=== PATIENT | female | born 1945 | race Caucasian/White ===

== ENCOUNTER 2021-07-03 14:03 | Emergency (ER) | payer MEDICARE, OTHER ==
[2021-07-03] MEDS ORDERED: HYDROCODON-ACE1 EAC4 PO (16:44)
[2021-07-11] MEDS ORDERED: EDARBI80 MG PO (15:11)
[2021-07-11] MEDS ORDERED: PROPRANOLOL HCL60 MG PO (15:13)
[2021-07-11] MEDS ORDERED: CLONIDINE HCL0.1 MG PO (15:14)
[2021-07-11] MEDS ORDERED: METFORMIN HCL500 M2 PO (15:15)
[2021-07-11] MEDS ORDERED: FLUTICASONE PROPIONA (15:19)
[2021-07-11] MEDS ORDERED: SINGULAIR10 MG PO (15:20)
[2021-07-11] MEDS ORDERED: HYDROCHLOROTHIA25 MG PO (15:21)
[2021-07-11] MEDS ORDERED: SYNTHROID125 MCG PO (15:21)
[2021-07-11] MEDS ORDERED: ZOCOR40 MG PO (15:22)
[2021-07-11] MEDS ORDERED: ZANAFLEX 4 MG TA4 MG PO (15:22)
[2021-07-11] MEDS ORDERED: LOW DOSE ASPIRI81 MG PO (15:23)
[2021-07-11] MEDS ORDERED: PHENERGAN 25 MG25 M1 PO (15:24)
[2021-07-11] MEDS ORDERED: VIT B6 PO (15:25)
[2021-07-11] MEDS ORDERED: NITROSTAT 0.40.4 MG SL (15:25)
[2021-07-11] MEDS ORDERED: FISH OIL 1,0001 EACH PO (15:26)
[2021-07-11] MEDS ORDERED: VITAMIN B12 PO (15:27)
[2021-07-11] MEDS ORDERED: VIT C PO (15:27)
[2021-07-11] MEDS ORDERED: VIT D PO (15:28)
[2021-07-13] MEDS ORDERED: ENDOCET 7.5-321 EACH PO (09:12)
== END 2021-07-03 17:17 | disposition home or self-care (01) ==
LOC: ER1 14:03
DX: S42.252A Displaced fracture of greater tuberosity of left humerus, initial encounter for closed fracture (principal); S90.32XA Contusion of left foot, initial encounter; I10 Essential (primary) hypertension; F17.210 Nicotine dependence, cigarettes, uncomplicated; Z88.5 Allergy status to narcotic agent; Z85.3 Personal history of malignant neoplasm of breast; W19.XXXA Unspecified fall, initial encounter
CPT/HCPCS: 71045; 73030; 73200; 99284

== ENCOUNTER → 2021-07-11 | Day surgery (SDC) | payer MEDICARE, OTHER ==
[~2021-07-11] MED LIST: CLONIDINE HCL0.1 MG PO; EDARBI80 MG PO; ENDOCET 7.5-321 EACH PO; FISH OIL 1,0001 EACH PO; FLUTICASONE PROPIONA; HYDROCHLOROTHIA25 MG PO; HYDROCODON-ACE1 EAC4 PO; LOW DOSE ASPIRI81 MG PO; METFORMIN HCL500 M2 PO; NITROSTAT 0.40.4 MG SL; PHENERGAN 25 MG25 M1 PO; PROPRANOLOL HCL60 MG PO; SINGULAIR10 MG PO; SYNTHROID125 MCG PO; VIT B6 PO; VIT C PO; VIT D PO; VITAMIN B12 PO; ZANAFLEX 4 MG TA4 MG PO; ZOCOR40 MG PO
[2021-07-11 14:05] LABS: HEMOGLOBIN 13.6 gm/dl (12.3-15.3); RED BLOOD COUNT 4.28 M/UL (4.00-5.10); WHITE BLOOD COUNT 9.4 K/UL (4.5-11.0)
[2021-07-11 14:20] LABS: BUN/CREATININE RATIO 19 (0-10)
== END | disposition home or self-care (01) ==
LOC: OPSV2 13:00
PROVIDERS: Orthopaedic Surgery
DX: Z01.818 Encounter for other preprocedural examination (principal); S42.302A Unspecified fracture of shaft of humerus, left arm, initial encounter for closed fracture
CPT/HCPCS: 71046; 80048; 83036; 85025; 87081; 93005

== ENCOUNTER → 2021-07-13 | Day surgery (SDC) | payer MEDICARE, OTHER ==
[~2021-07-13] VITALS: Ht 165.1 cm; Wt 75.7 kg
== END | disposition home or self-care (01) ==
LOC: OR 06:59
DX: S42.202A Unspecified fracture of upper end of left humerus, initial encounter for closed fracture (principal); I11.9 Hypertensive heart disease without heart failure; E78.5 Hyperlipidemia, unspecified; K21.9 Gastro-esophageal reflux disease without esophagitis; E07.9 Disorder of thyroid, unspecified; F17.210 Nicotine dependence, cigarettes, uncomplicated; Z20.822 Contact with and (suspected) exposure to COVID-19; Z86.79 Personal history of other diseases of the circulatory system; W01.0XXA Fall on same level from slipping, tripping and stumbling without subsequent striking against object, initial encounter
CPT/HCPCS: 73020; 82962; C1713; C1776; J0171; J0360; J0690; J1100; J1885; J2001; J2370; J2405; J2704; J2710; J2795; J3010; J3370; J7120

== ENCOUNTER → 2022-07-03 | Outpatient (CLI) | payer MEDICARE, OTHER | LOC: HEART 5 08:00 | DX: I25.119 Atherosclerotic heart disease of native coronary artery with unspecified angina pectoris (principal); R06.02 Shortness of breath; R00.1 Bradycardia, unspecified; I51.89 Other ill-defined heart diseases | CPT/HCPCS: 78452; 93306; A9502; J2785 ==